=== PATIENT | female | born 1995 | race Caucasian/White ===

== ENCOUNTER 2018-11-04 09:43 | Emergency (ER) | payer MEDICAID ==
[~2018-11-04] VITALS: Ht 170.2 cm; Wt 74.1 kg
[2018-11-04 09:51] VITALS: BP 100/68
--- NOTE | 2018-11-04 10:09 | NUR ---
PAID SEARCH MARKETING ANALYST: PT TO ROOM FROM [facility]
--- NOTE | 2018-11-04 12:01 | NUR ---
NO IV TO DC. REVIEWED DC INSTRUCTIONS WITH PT, UNDERSTANDING VERBALIZED. PT LEFT AMB, GAIT STEADY.
== END 2018-11-04 12:04 | disposition home or self-care (01) ==
LOC: ED 10:49
DX: Z32.01 Encounter for pregnancy test, result positive (principal)
CPT/HCPCS: 36415; 84702; 99283

== ENCOUNTER 2018-11-17 11:23 | Emergency (ER) | payer MEDICAID ==
[~2018-11-17] VITALS: Ht 172.7 cm; Wt 72.3 kg
--- NOTE | 2018-11-17 12:11 | NUR ---
PT TO ROOM 30 FROM [facility], GAIT STEADY. PT STATES SHE IS 7-8 WEEKS , CANNOT STATE EXACT DATE OF LMP. PT STATES SHE HAS HAD N/V X 1 WEEK. PT DOES NOTE SHE HAD SOME VAGINAL BLEEDING ONE WEEK AGO AFTER INTERCOURSE, HOWEVER STATES THIS WAS TRANSIENT AND IS NOT BLEEDING AT THIS TIME. PT DENIES PAIN, DENIES BLEEDING/CRAMPING. PT IS A&OX4, RESPS EVEN AND UNLABORED. PT IS NOT VOMITING AT THIS TIME. PT PLACED IN GOWN, PROVIDED WITH WARM BLANKET. S/O AT BEDSIDE. CALL LIGHT IN REACH. AWAITING PROVIDER ASSESSMENT AND ORDERS.
[2018-11-17] MEDS ORDERED: ONDANSETRON 2MG/ML, 2ML ONE (13:23)
--- NOTE | 2018-11-17 13:25 | NUR ---
PT TAKEN TO US
[2018-11-17] MEDS ORDERED: ONDANSETRON 2MG/ML, 2ML IVPush ONE (13:30)
[2018-11-17] MEDS ORDERED: SODIUM CHLORIDE FLUSH 10ML SYR IVF ONE (13:30)
[2018-11-17] MEDS ORDERED: SODIUM CHLORIDE 0.9% 1,000ML IVBOLUS ONE (13:30)
--- NOTE | 2018-11-17 13:57 | NUR ---
pt back from US
--- NOTE | 2018-11-17 14:19 | NUR ---
PIV INSERTED BY EDTA. PT EDUCATED REGARDING ZOFRAN, PT MEDICATED PER EMAR, TOLERATED WELL. IVF INFUSING RAPIDLY. PT A&O, RESPS EVEN AND UNLABORED, NADN. AWAITING LABWORK AND UA RESULTS AT THIS TIME.
[2018-11-17 14:20] LABS: BASOPHILS # (AUTO) 0.03 x10^3/uL (0-0.1); BASOPHILS % (AUTO) 0 % (0-1); EOSINOPHILS # (AUTO) 0.03 x10^3/uL (0-0.4); EOSINOPHILS % (AUTO) 0 % (1-7); LYMPHOCYTES # (AUTO) 1.55 x10^3/uL (1-3.4); LYMPHOCYTES % (AUTO) 23 % (22-44); MD NO; MEAN CORPUSCULAR HEMOGLOBIN 32.8 pg (27.0-34.8); MEAN CORPUSCULAR HGB CONC 34.4 g/dL (32.4-35.8); MEAN CORPUSCULAR VOLUME 95.3 fL (80-100); MEAN PLATELET VOLUME 7.8 fL (7.4-10.4); MONOCYTES # (AUTO) 0.27 x10^3/uL (0.2-0.8); MONOCYTES % (AUTO) 4 % (2-9); NEUTROPHILS # (AUTO) 5.04 x10^3/uL (1.8-6.8); NEUTROPHILS % (AUTO) 73 % (42-75); PLATELET COUNT 264 x10^3/uL (130-400); RED BLOOD COUNT 4.37 x10^6/uL (3.82-5.3); RED CELL DISTRIBUTION WIDTH 12.3 % (9.6-15.2)
[2018-11-17 14:23] LABS: CULTURE INDICATED? YES; MICROSCOPIC INDICATED
[2018-11-17 14:29] LABS: ALBUMIN 4.5 g/dL (3.4-5.0); ANION GAP 7 mmol/L (5-15); CALCIUM 8.9 mg/dL (8.5-10.1); CHLORIDE 106 mmol/L (98-107)
[2018-11-17 14:48] LABS: CREATININE 0.63 mg/dL (0.55-1.02)
--- NOTE | 2018-11-17 15:06 | NUR ---
SBAR report received from RN, Raya. Pt resting on [facility] [place].
--- NOTE | 2018-11-17 15:15 | NUR ---
REPORT GIVEN TO SHEBA DRAKE. PT A&O, RESPS EVEN AND UNLABORED, NO N/V AT THIS TIME. PT TO BE DC'D.
[2018-11-17 15:35] VITALS: BP 103/59
--- NOTE | 2018-11-17 15:36 | NUR ---
Pt resting on [facility], aware of plan to be discharged home. Pt denies any nausea at this time and states that she is feeling much better. IV d/c'd with tip intact and pt is getting dressed.
--- NOTE | 2018-11-17 15:54 | NUR ---
Patient/Caregiver given discharge instructions and they have confirmed that they understand the instructions. Patient ambulatory with steady gait.
== END 2018-11-17 15:55 | disposition home or self-care (01) ==
LOC: ED 15:49
DX: O20.0 Threatened abortion (principal); O21.1 Hyperemesis gravidarum with metabolic disturbance; E86.0 Dehydration; Z3A.08 8 weeks gestation of pregnancy
CPT/HCPCS: 36415; 76801; 80048; 81001; 82040; 84702; 85025; 86901; 87086; 96374; 99284; J2405; J7030